=== PATIENT | male | born 1980 | race Caucasian/White ===

== ENCOUNTER 2025-01-20 19:49 | Emergency (ER) | payer SELFPAY ==
[2025-01-20] MEDS: Dexamethasone Sod Phos Preservative Free 10 MG/ML Vial IVPUSH ONE ×2 (20:22→23:58)
[2025-01-20 20:33] LABS: BASOPHILS ABSOLUTE AUTO 0.04 K/uL (0.00-0.20); BASOPHILS PERCENT AUTO 0.4 % (0.0-1.0); EOSINOPHILS ABSOLUTE AUTO 0.06 K/uL (0.00-0.45); EOSINOPHILS PERCENT AUTO 0.6 % (0.0-6.0); IMMATURE GRAN ABSOLUTE AUTO 0.03 K/uL (0.00-0.05); IMMATURE GRAN PERCENT AUTO 0.3 % (0.0-0.4); LYMPHOCYTES ABSOLUTE AUTO 1.50 K/uL (1.00-4.80); LYMPHOCYTES PERCENT AUTO 15.4 % (24.0-44.0); MEAN PLATELET VOLUME 11.4 fL (9.4-12.4); MONOCYTES ABSOLUTE AUTO 0.66 K/uL (0.00-0.80); MONOCYTES PERCENT AUTO 6.8 % (0.0-8.0); NEUTROPHILS ABSOLUTE AUTO 7.42 K/uL (1.80-7.70); NEUTROPHILS PERCENT AUTO 76.5 % (41.0-71.0); NRBC ABSOLUTE 0.00 K/uL (0.00-0.02); NRBC PERCENT 0.0 /100WBC (0.0-0.2); PLATELET COUNT,PLT 156 K/uL (150-400); RED BLOOD CELL COUNT 5.03 M/uL (4.52-5.90); WHITE BLOOD CELL COUNT,WBC 9.71 K/uL (3.9-11.3)
[2025-01-20 20:49] LABS: INR 1.1 (0.86-1.11); PTT,PARTIAL THROMBOPLSTIN TIME 27.1 SEC (23.9-30.7)
[2025-01-20 20:57] LABS: A/G RATIO 0.9 (0.9-1.6); ALANINE AMINOTRANSFERASE,ALT 97.0 IU/L (14-63); ASPARTATE AMNIOTRANSFERASE,AST 49.0 IU/L (15-37); BILIRUBIN TOTAL 0.7 mg/dL (0.2-1.0); BLOOD UREA NITROGEN,BUN 12.0 mg/dL (7.0-18.0); CARBON DIOXIDE,CO2 22.9 mmol/L (21.0-32.0); CHLORIDE,CL 98.0 mmol/L (98-107); CREATININE 1.1 mg/dL (0.8-1.3); EST CRCL DRUG DOSING (CG) 82.05 mL/min; GLUCOSE RANDOM 298.0 mg/dL (74-106); POTASSIUM,K 3.3 mmol/L (3.5-5.1); PROTEIN TOTAL,TP 7.8 g/dL (6.4-8.2); SODIUM,NA 136.0 mmol/L (136-148)
[2025-01-20 21:00] LABS: ESTIMATED GFR 84.0 mL/min (>60)
[2025-01-20] MEDS: LORazepam 2 MG/ML SDV IVPUSH STA (21:26)
[2025-01-20] MEDS: Potassium Chloride 20 MEQ Tab.ER PO ONE (21:26)
[2025-01-20] MEDS: Iopamidol 755 MG/ML 500 ML Multipack Bottle IVPUSH STA (22:54)
== END 2025-01-21 00:07 | disposition home or self-care (01) ==
LOC: MW.ED 19:49
DX: J18.9 Pneumonia, unspecified organism (principal); E87.6 Hypokalemia; E83.42 Hypomagnesemia; R73.9 Hyperglycemia, unspecified; E86.0 Dehydration; Z79.899 Other long term (current) drug therapy; Z75.3 Unavailability and inaccessibility of health-care facilities
CPT/HCPCS: 36415; 71046; 71275; 80053; 83690; 83735; 83880; 84484; 85025; 85379; 85610; 85730; 93005; 96361; 96374; 96375; 96376; 99285; A9270; J1100; J2060; J7030; J7620; Q0144; Q9967; 93010; 99284